=== PATIENT | female | born 1995 | race Caucasian/White ===

== ENCOUNTER 2016-07-25 04:38 | Emergency (ER) | payer SELFPAY ==
[2016-07-25] MEDS ORDERED: NS 1,000 ML IV ONE (04:58)
[2016-07-25] MEDS ORDERED: ONDANSETRON HCL 4 MG/2 ML VIAL IV ONE (04:58)
--- NOTE | 2016-07-25 05:12 | EDPRACDOC ---
- General Information Information Source: Patient Mode Of Arrival: Walk - History of Present Illness Onset: FEW DAYS Pain Location: Reports: RUQ Pain Context: Reports: Spontaneous Pain Severity: Moderate Pain Quality: Reports: Sharp Pain Radiation: Reports: No Radiation Adult Abdominal History: Denies: Abdominal Surgery Female Abdominal History: Denies: Abdominal Surgery Modifying Factors: improves with: Nothing Female Associated Signs & Symptoms: Reports: Nausea, Vomiting Oral Intake: Decreased Urinary Output: Decreased <Arabella Julio - Last Filed: 07/25/16 05:10> <Michelle Bills - Last Filed: 07/25/16 10:36> - General Information Stated Complaint: UPPER RIB CAGE PAIN Time Seen by Provider: 07/25/16 04:53 Home Medications: Home Medications No Home Medications 07/25/16 Allergies/Adverse Reactions: Allergies Allergy/AdvReac Type Severity Reaction Status Date / Time No Known Allergies Allergy Verified 07/25/16 06:23 - History of Present Illness HPI: PT HAS BEEN HAVING RUQ PAIN FOR THE PAST FEW WEEKS. SHE WENT TO [facility] A FEW DAYS AGO AND WAS TOLD THAT SHE MAY HAVE GALLBLADDER DISEASE. THE PT SAID THAT THE ED DID A CT SCAN WHICH WAS NEGATIVE. THEY TOLD HER TO GET A HIDA SCAN. SHE CALLED HER PCP WHO IS TRYING TO GET IT APPROVED WITH HER INSURANCE. 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 SHE HAS BEEN UNABLE TO KEEP ANYTHING DOWN TODAY. (Arabella Julio) ED Past Medical History - History Reviewed No Past Medical History: Yes Patient has no past medical history - Social Medical History Smoking Status: Never smoker ETOH: None Substance Abuse: None Lives In: Home <Arabella Julio - Last Filed: 07/25/16 05:10> EDM Review of Systems - Review of Systems ROS Negative Except as Marked: Yes All systems reviewed and were negative except as marked Gastrointestinal: Nausea, Pain, Vomiting <Arabella Julio - Last Filed: 07/25/16 05:10> - Review of Systems Respiratory: Pleurisy, Dyspnea <Michelle Bills - Last Filed: 07/25/16 10:36> - Physical Exam Constitutional: Alert (Awake), No apparent distress Oriented to: Time, Person, Place - HEENT Head: Normal ( normocephalic) Eye Exam: Normal (PERRL, EOMI, Sclera white) Oropharynx: Normal (Pharynx:Moist without exudate,Gums-no swelling) ENT EAC: Normal TMJ: Normal Nose: No Symptoms Reported (septum midline) Neck: Normal (FROM, trachea at midline) - Respiratory/Cardiovascular Respiratory: Normal - CTA (BBS clear to auscultation without adventitious sounds ) Cardiovascular: Normal (RRR without murmur, gallop or rub) - GI Auscultation: Normal Palpation: Normal Tenderness: Moderate, RUQ Lees's Sign: Positive - Musculoskeletal Back: Normal (Non-Tender) Extremities: Normal (Normal tone, Pulses 2+ No cyanosis or edema, FROM) - Integumentary Skin: Normal, Warm, Dry Lymphatics: Normal (no adenopathy) - Neurologic Memory Impaired: Normal Motor Function: Normal (Normal tone, Pulses 2+ No cyanosis or edema, FROM) Cranial Nerve: Normal (CN II-X11 intact sensation, strength 5/5) Cerebellar: Normal Mood Description: Normal Thought: Coherent Perception: Normal <Arabella Julio - Last Filed: 07/25/16 05:10> <Arabella Julio - Last Filed: 07/25/16 05:10> - Re-evaluation Re-evaluation 2 Re-evaluation Time: 07:19 (I ASSUMED CARE FROM DR JULIO. RUQ PAIN INTERMITTENT FOR WEEKS. NOW UNTOLERABLE. AGG BY PO INTAKE. RUQ US ORDERED.) - Results 07/25/16 05:17 07/25/16 05:17 - Diagnostic Imaging Abdomen Image interpreted by: Radiologist Chest Image interpreted by: Radiologist <Michelle Bills - Last Filed: 07/25/16 10:36> - Results WBC 8.8 xk/uL (3.8-10.8) 07/25/16 05:17 RBC 4.60 xM/uL (4.20-5.40) 07/25/16 05:17 Hgb 13.3 g/dL (12.0-16.0) 07/25/16 05:17 Hct 39.7 % (36-47) 07/25/16 05:17 MCV 86 fL (81-99) 07/25/16 05:17 MCH 28.9 pg (27-32) 07/25/16 05:17 MCHC 33.5 g/dl (33-36) 07/25/16 05:17 RDW 13.1 % (11.5-14.5) 07/25/16 05:17 Plt Count 273 xk/uL (130-400) 07/25/16 05:17 MPV 8.6 fL (7.4-10.4) 07/25/16 05:17 Neut % (Auto) 58.8 % (45-76) 07/25/16 05:17 Lymph % (Auto) 28.7 % (17-44) 07/25/16 05:17 [place] % (Auto) 10.1 % (3-10) H 07/25/16 05:17 Eos % (Auto) 1.3 % (0-5) 07/25/16 05:17 Baso % (Auto) 1.1 % (0-2) 07/25/16 05:17 Absolute Neuts (auto) 5.10 xk/uL (1.7-8.2) 07/25/16 05:17 Absolute Lymphs (auto) 2.46 xk/uL (0.65-4.75) 07/25/16 05:17 D-Dimer Quant (PE/DVT) 273 ng/mL (<500) 07/25/16 05:17 Sodium 140 mEq/L (137-146) 07/25/16 05:17 Potassium 3.6 mEq/L (3.5-5.1) 07/25/16 05:17 Chloride 104 mEq/L (98-107) 07/25/16 05:17 Carbon Dioxide 24 mMOL/L (22-33) 07/25/16 05:17 Anion Gap 16 mEq/L (8-16) 07/25/16 05:17 BUN 17 MG/DL (7-17) 07/25/16 05:17 Creatinine 0.70 MG/DL (0.52-1.04) 07/25/16 05:17 Estimated GFR (MDRD) > 60 mL/min (>=60) 07/25/16 05:17 Glucose 92 MG/DL (70-99) 07/25/16 05:17 Calculated Osmolality 271 MOs/Kg (270-290) 07/25/16 05:17 Calcium 9.6 MG/DL (8.4-10.2) 07/25/16 05: Total Bilirubin 0.5 MG/DL (0.2-1.3) 07/25/16 05: AST 18 IU/L (14-36) 07/25/16 05:17 ALT 30 IU/L (9-52) 07/25/16 05:17 Alkaline Phosphatase 74 IU/L (38-126) 07/25/16 05: Total Protein 8.0 G/DL (6.3-8.2) 07/25/16 05:17 Albumin 4.5 G/DL (3.5-5.0) 07/25/16 05:17 Lipase 65 U/L (23-300) 07/25/16 05:17 Urine Color Yellow 07/25/16 05:00 Urine Clarity Sl cldy 07/25/16 05:00 Urine pH 5.0 (5.0-8.0) 07/25/16 05:00 Ur Specific Ismay 1.030 (1.003-1.035) 07/25/16 05:00 Urine Protein Neg (NEG/TRACE) 07/25/16 05:00 Urine Glucose (UA) Neg (NEGATIVE) 07/25/16 05:00 Urine Ketones Neg (NEGATIVE) 07/25/16 05:00 Urine Occult Blood 1+ (NEG/TRACE) H 07/25/16 05:00 Urine Nitrite Neg (NEGATIVE) 07/25/16 05:00 Urine Bilirubin Neg (NEGATIVE) 07/25/16 05:00 Urine Urobilinogen <2.0 MG/DL (0-1) 07/25/16 05:00 Ur Leukocyte Esterase Trace (NEGATIVE) H 07/25/16 05:00 Urine RBC 2-5 (0-5) 07/25/16 05:00 Urine WBC 5-10 (0-5) H 07/25/16 05:00 Ur Epithelial Cells 2+ 07/25/16 05:00 Amorphous Sediment 1+ 07/25/16 05:00 Urine Bacteria Few (NEG/FEW) 07/25/16 05:00 Urine Mucus Sm amt (NEG/OCC) 07/25/16 05:00 Urine Test Neg (NEGATIVE) 07/25/16 05:00 Lab Results 07/25/16 07/25/16 07/25/16 05:17 05:17 05:17 WBC 8.8 RBC 4.60 Hgb 13.3 Hct 39.7 MCV 86 MCH 28.9 MCHC 33.5 RDW 13.1 Plt Count 273 MPV 8.6 Neut % (Auto) 58.8 Lymph % (Auto) 28.7 [place] % (Auto) 10.1 H Eos % (Auto) 1.3 Baso % (Auto) 1.1 Absolute Neuts (auto) 5.10 Absolute Lymphs (auto) 2.46 D-Dimer Quant (PE/DVT) 273 Sodium 140 Potassium 3.6 Chloride 104 Carbon Dioxide 24 Anion Gap 16 BUN 17 Creatinine 0.70 Estimated GFR (MDRD) > 60 Glucose 92 Calculated Osmolality 271 Calcium 9.6 Total Bilirubin 0.5 AST 18 ALT 30 Alkaline Phosphatase 74 Total Protein 8.0 Albumin 4.5 Lipase 65 Urine Color Urine Clarity Urine pH Ur Specific [place] Urine Protein Urine Glucose (UA) Urine Ketones Urine Occult Blood Urine Nitrite Urine Bilirubin Urine Urobilinogen Ur Leukocyte Esterase Urine RBC Urine WBC Ur Epithelial Cells Amorphous Sediment Urine Bacteria Urine Mucus Urine Test 07/25/16 07/25/16 05:00 05:00 WBC RBC Hgb Hct MCV MCH MCHC RDW Plt Count MPV Neut % (Auto) Lymph % (Auto) [place] % (Auto) Eos % (Auto) Baso % (Auto) Absolute Neuts (auto) Absolute Lymphs (auto) D-Dimer Quant (PE/DVT) Sodium Potassium Chloride Carbon Dioxide Anion Gap BUN Creatinine Estimated GFR (MDRD) Glucose Calculated Osmolality Calcium Total Bilirubin AST ALT Alkaline Phosphatase Total Protein Albumin Lipase Urine Color Yellow Urine Clarity Sl cldy Urine pH 5.0 Ur Specific Ismay 1.030 Urine Protein Neg Urine Glucose (UA) Neg Urine Ketones Neg Urine Occult Blood 1+ H Urine Nitrite Neg Urine Bilirubin Neg Urine Urobilinogen <2.0 Ur Leukocyte Esterase Trace H Urine RBC 2-5 Urine WBC 5-10 H Ur Epithelial Cells 2+ Amorphous Sediment 1+ Urine Bacteria Few Urine Mucus Sm amt Urine Test Neg (Michelle Bills) - Diagnostic Imaging Abdomen 07/25/16 08:23 Patient Name: GABRIELA CUELLAR LOC: ED : 1995 AGE: 21 Order Date:07/25/16 Date of Service: Report # [id number] Ord Physician: Arabella Julio MD Exam # [id number] Emergency Physician: Michelle Bills MD Exam(s): [id number] US/US GALLBLADDER-BILIARY (RUQ) CLINICAL DATA: Right upper quadrant pain starting last night EXAM: US ABDOMEN LIMITED - RIGHT UPPER QUADRANT COMPARISON: None. FINDINGS: Gallbladder: No gallstones or wall thickening visualized. There is positive sonographic Lees's sign. No pericholecystic fluid. Common bile duct: Diameter: 3 mm in diameter. Liver: No focal lesion identified. Within normal limits in parenchymal echogenicity. Limited assessment due to patient's large body habitus and abundant bowel gas. IMPRESSION: 1. No gallstones are noted within gallbladder. No thickening of gallbladder wall. There is positive sonographic Lees sign. Clinical correlation is necessary to exclude early cholecystitis. 2. Normal CBD. 3. Limited assessment of the liver due to abundant bowel gas and patient's large body habitus. Electronically Signed By: Rj Pope M.D. On: 07/25/2016 08:09 Electronically Signed By: Rj Pope MD Electronically Signed Date/Time: 812 Dictate Date/Time: 07/25/16 0807 Technologist: Joshua Chambers Transcribed By: Eliza Transcribed Date/Time: 07/25/16 0809 (Michelle Bills) Chest 07/25/16 10:35 Patient Name: NIC GAMBINO LOC: ED : 03/13/1946 AGE: 70 Order Date:07/25/16 Date of Service: Report # [id number] Ord Physician: Michelle Bills MD Exam # [id number] Emergency Physician: Michelle Bills MD Exam(s): [id number] RAD/DG CHEST 2V CLINICAL DATA: Shortness of breath EXAM: CHEST 2 VIEW COMPARISON: Chest x-ray dated 06/16/2016. FINDINGS: Cardiomediastinal silhouette is normal in size and configuration. Lungs are clear. Lung volumes are slightly prominent suggesting some degree of COPD. No evidence of pneumonia. No pleural effusion. No pneumothorax. Osseous and soft tissue structures about the chest are unremarkable. IMPRESSION: 1. Lungs at least mildly hyperexpanded suggesting COPD. 2. No acute findings. No evidence of pneumonia. No evidence of volume overload/CHF. Electronically Signed By: Song Le M.D. On: 07/25/2016 09:34 Electronically Signed By: Song Le MD Electronically Signed Date/Time: 936 Dictate Date/Time: 07/25/16 0932 Technologist: Aydee Sher Transcribed By: Eliza Transcribed Date/Time: 07/25/16 0934 (Michelle Bills) <Arabella Julio - Last Filed: 07/25/16 05:10> - Departure Disposition: Home Education/Counseling Given To: Patient Education/Counseling Given Regarding: Diagnosis, Treatment, Prognosis <Michelle Bills - Last Filed: 07/25/16 10:36> - Departure Condition: Stable Final Diagnosis: RUQ abdominal pain Instructions: Non-pharmacological Pain Management Therapies for Adults (GEN), Abdominal Pain (ED) Referrals: None,No Provider [NonStaff] - One Week Prescriptions: No Action No Home Medications 0 NA DIR #0 info Additional Instructions: FOLLOW UP WITH YOUR DOCTOR FOR CONSIDERATION OF FURTHER TESTING OF HER GALLBLADDER SUCH A HIDA SCAN. RETURN FOR FEVER WORSE OR DIFFERENT PAIN.
[2016-07-25 05:17] LABS: LEUKOCYTES/URINE TRACE (NEGATIVE); NITRITE/URINE NEG (NEGATIVE); URINE OCCULT BLOOD 1+ (NEG/TRACE)
[2016-07-25 05:18] LABS: AMORPHOUS 1+
[2016-07-25 05:31] LABS: AUTOMATED BASOPHIL 1.1 % (0-2); AUTOMATED EOSINOPHIL 1.3 % (0-5); AUTOMATED LYMPH 28.7 % (17-44); AUTOMATED MONOCYTE 10.1 % (3-10); AUTOMATED NEUTROPHIL 58.8 % (45-76); MPV 8.6 fL (7.4-10.4)
[2016-07-25 05:32] VITALS: TEMP 98; BMI 34.2
[2016-07-25 05:40] LABS: BLOOD UREA NITROGEN 17 MG/DL (7-17); CALCIUM 9.6 MG/DL (8.4-10.2); CALCULATED OSMOLALITY 271 MOs/Kg (270-290); CHLORIDE 104 mEq/L (98-107); GLUCOSE 92 MG/DL (70-99); SODIUM LEVEL 140 mEq/L (137-146)
--- NOTE | 2016-07-25 08:12 | DIRPT ---
CLINICAL DATA: Right upper quadrant pain starting last night EXAM: US ABDOMEN LIMITED - RIGHT UPPER QUADRANT COMPARISON: None. FINDINGS: Gallbladder: No gallstones or wall thickening visualized. There is positive sonographic Lees's sign. No pericholecystic fluid. Common bile duct: Diameter: 3 mm in diameter. Liver: No focal lesion identified. Within normal limits in parenchymal echogenicity. Limited assessment due to patient's large body habitus and abundant bowel gas. IMPRESSION: 1. No gallstones are noted within gallbladder. No thickening of gallbladder wall. There is positive sonographic Lees sign. Clinical correlation is necessary to exclude early cholecystitis. 2. Normal CBD. 3. Limited assessment of the liver due to abundant bowel gas and patient's large body habitus. Electronically Signed By: Rj Pope M.D. On: 07/25/2016 08:09
--- NOTE | 2016-07-25 09:33 | DIRPT ---
CLINICAL DATA: Shortness of Breath, right upper quadrant pain for 4 months EXAM: CHEST 2 VIEW COMPARISON: None. FINDINGS: The heart size and mediastinal contours are within normal limits. Both lungs are clear. The visualized skeletal structures are unremarkable. IMPRESSION: No active cardiopulmonary disease. Electronically Signed By: Rj Pope M.D. On: 07/25/2016 09:31
[2016-07-25 10:57] VITALS: BP 140/90; PULSE 86
== END 2016-07-25 10:57 | disposition home or self-care (01) ==
LOC: ED 04:38
DX: R10.11 Right upper quadrant pain (principal)
CPT/HCPCS: 36415; 71020; 76705; 80053; 81001; 81025; 83690; 85025; 85379; 96361; 96374; 99284; J2405